=== PATIENT | female | born 1990 | race Hispanic/Latino ===

== ENCOUNTER → 2019-11-12 | Outpatient (CLI) | payer SELFPAY ==
[~2019-11-12] MED LIST: GADODIAMIDE 10 MMOL/20 ML VIAL IV ONE
== END | disposition home or self-care (01) ==
LOC: RAH 14:03
PROVIDERS: ATTEND Family Medicine
DX: I65.03 Occlusion and stenosis of bilateral vertebral arteries (principal); R55 Syncope and collapse
CPT/HCPCS: 70549; 70553; A9579